=== PATIENT | female | born 1955 | race Two or more races ===

== ENCOUNTER 2023-02-17 16:36 | Emergency (ER) | payer OTHER ==
[~2023-02-17] VITALS: Ht 162.6 cm; Wt 81.6 kg
[2023-02-17] MEDS ORDERED: LOSARTAN POTAS100 MG PO (17:10)
[2023-02-17] MEDS ORDERED: ATORVASTATIN CA20 MG PO (17:10)
== END 2023-02-17 19:07 | disposition home or self-care (01) ==
LOC: ER 16:37
DX: M54.32 Sciatica, left side (principal); Z88.0 Allergy status to penicillin
CPT/HCPCS: 96372; 99284; J1885; J2360

== ENCOUNTER 2023-05-15 13:55 | Outpatient (CLI) | payer OTHER ==
[~2023-05-15 13:55] MED LIST: ATORVASTATIN CA20 MG PO; LOSARTAN POTAS100 MG PO
== END 2023-05-15 14:01 | disposition home or self-care (01) ==
LOC: MAMO-SONO 13:55
DX: Z12.31 Encounter for screening mammogram for malignant neoplasm of breast (principal); N64.4 Mastodynia

== ENCOUNTER 2023-05-25 10:48 | Outpatient (CLI) | payer OTHER | END 2023-05-25 10:52 | disposition home or self-care (01) | LOC: NUCLEAR 10:48 | DX: M81.0 Age-related osteoporosis without current pathological fracture (principal); Z12.31 Encounter for screening mammogram for malignant neoplasm of breast; N64.4 Mastodynia ==

== ENCOUNTER 2023-08-07 13:08 | Outpatient (CLI) | payer OTHER | END 2023-08-07 13:16 | disposition home or self-care (01) | LOC: RAD 13:08 | PROVIDERS: ATTEND Orthopaedic Surgery | DX: M16.0 Bilateral primary osteoarthritis of hip (principal); M17.0 Bilateral primary osteoarthritis of knee ==

== ENCOUNTER 2023-09-09 17:26 | Emergency (ER) | payer OTHER ==
[~2023-09-09] VITALS: Ht 160 cm; Wt 89.8 kg
[2023-09-09] MEDS ORDERED: GABAPENTIN300 M2 PO (18:25)
[2023-09-09] MEDS ORDERED: PANTOPRAZOLE SO40 MG PO (18:26)
[2023-09-09] MEDS ORDERED: METFORMIN HCL500 M4 PO (18:26)
[2023-09-09] MEDS ORDERED: KETOROLAC TROMETHAMINE 30 MG VIAL IM ONE (20:15)
[2023-09-09 20:47] LABS: HEMATOCRIT 38.5 % (36.0-45.00); HEMOGLOBIN 13.1 g/dL (12.0-15.00); MEAN CELL VOLUME 85.5 fL (80.00-100.00); MEAN CORPUSCULAR HEMOGLOBIN 29.2 pg (27.00-32.0); MEAN CORPUSCULAR HGB CONC 34.1 g/dl (32.0-36.0); PLATELET COUNT 336 K/uL (150-450)
== END 2023-09-09 22:38 | disposition home or self-care (01) ==
LOC: ER 17:26
PROVIDERS: General Practice
DX: L03.115 Cellulitis of right lower limb (principal); T84.7XXA Infection and inflammatory reaction due to other internal orthopedic prosthetic devices, implants and grafts, initial encounter; E11.9 Type 2 diabetes mellitus without complications; Z79.84 Long term (current) use of oral hypoglycemic drugs; Z88.0 Allergy status to penicillin
CPT/HCPCS: 36415; 73630; 96372; 99283; J1885